=== PATIENT | male | born 1965 | race Caucasian/White ===

== ENCOUNTER 2017-04-08 10:15 | Inpatient (IN) | payer OTHER ==
[~2017-04-08] VITALS: Ht 175.3 cm; Wt 94.5 kg
[2017-04-08 11:27] LABS: BASOPHIL % 0.4 % (0-2); PLATELET COUNT 263 x10^3mcL (130-400)
[2017-04-08 11:33] LABS: RED CELL DISTRIBUTION WIDTH 17.6 % (11.5-14.5)
[2017-04-08 11:56] LABS: CALCIUM 7.9 mg/dL (8.5-10.1); CARBON DIOXIDE 23.3 mmol/L (21-32); CHLORIDE SERUM 98 mmol/L (98-107); GFR1 > 60 mL/min; GLUCOSE SERUM 167 mg/dL (74-106); POTASSIUM SERUM 4.8 mmol/L (3.5-5.1); SODIUM SERUM 132 mmol/L (136-145)
[2017-04-08] MEDS ORDERED: BUSPIRONE HCL5 MG PO (11:57)
[2017-04-08] MEDS ORDERED: ISOSORBIDE MONO30 MG PO (11:57)
[2017-04-08] MEDS ORDERED: CYMBALTA60 M1 PO (11:58)
[2017-04-08] MEDS ORDERED: LASIX40 MG PO (11:59)
[2017-04-08] MEDS ORDERED: CLOPIDOGREL75 M1 PO (12:00)
[2017-04-08] MEDS ORDERED: AMIODARONE HCL200 MG PO (12:00)
[2017-04-08] MEDS ORDERED: PERCOCET1 TA5 PO (12:01)
[2017-04-08] MEDS ORDERED: LISINOPRIL2.5 MG PO (12:01)
[2017-04-08] MEDS ORDERED: MAGNESIUM OXID400 MG PO (12:02)
[2017-04-08] MEDS ORDERED: CARVEDILOL12.5 M1 PO (12:03)
[2017-04-08] MEDS ORDERED: XANAX XR1 M1 PO (12:03)
[2017-04-08] MEDS ORDERED: KLOR-CON M2020 MEQ PO (12:04)
[2017-04-08] MEDS ORDERED: ASPIR 8181 MG PO (12:05)
[2017-04-08 12:06] LABS: ALKALINE PHOSPHATASE 85 U/L (46-116); ALT/SGPT 19 U/L (16-63); AST/SGOT 39 U/L (15-37); BILIRUBIN TOTAL 1.9 mg/dL (0.20-1.00); TOTAL PROTEIN, SERUM 6.6 g/dL (6.4-8.2)
[2017-04-08] MEDS ORDERED: ALDACTONE25 MG PO (12:06)
[2017-04-08 12:13] LABS: CK-MB 4.5 ng/mL (0-3.6)
[2017-04-08 13:39] LABS: MAGNESIUM 1.8 mg/dL (1.8-2.4); PHOSPHOROUS 3.6 mg/dL (2.5-4.9)
[2017-04-08 13:41] LABS: CHOLESTEROL/HDL RATIO 4.5
[2017-04-08 13:50] LABS: FREE T4 1.49 ng/dL (0.76-1.46); FREE THYROXINE INDEX 3.6 ug/dL (1.4-4.5); T4(THYROXINE) 9.4 ug/dL (4.7-13.3)
[2017-04-08 13:54] LABS: T3 TOTAL 0.88 ng/mL
[2017-04-08 14:31] VITALS: BP 106/62
[2017-04-08 15:03] LABS: microscopic required? NO
[2017-04-08 15:44] LABS: UA SPECIFIC GRAVITY 1.015 (1.005-1.035); urine erythrocyte NEGATIVE (NEGATIVE)
[2017-04-08 15:52] LABS: AMPHETAMINE QUAL UR NONE DETECTED (NEG <=1000)
[2017-04-08 17:32] VITALS: BP 92/49
[2017-04-08 18:35] VITALS: BP 92/49
[2017-04-08 18:58] VITALS: BP 105/71
[2017-04-08 21:16] VITALS: BP 93/56
[2017-04-09 06:37] VITALS: BP 106/71
[2017-04-09 07:45] VITALS: BP 97/65
[2017-04-09 07:58] LABS: BASOPHIL % 0.3 % (0-2); PLATELET COUNT 235 x10^3mcL (130-400)
[2017-04-09 08:02] LABS: RED CELL DISTRIBUTION WIDTH 17.8 % (11.5-14.5)
[2017-04-09 08:05] LABS: CALCIUM 7.8 mg/dL (8.5-10.1); CARBON DIOXIDE 26.8 mmol/L (21-32); CHLORIDE SERUM 99 mmol/L (98-107); CREATININE SERUM 1.1 mg/dL (0.7-1.3); GFR1 > 60 mL/min; GLUCOSE SERUM 138 mg/dL (74-106); POTASSIUM SERUM 3.9 mmol/L (3.5-5.1); SODIUM SERUM 136 mmol/L (136-145)
[2017-04-09 08:11] VITALS: Ht 175.3 cm; Wt 94.5 kg
[2017-04-09 09:30] VITALS: BP 97/65
[2017-04-09 17:56] VITALS: BP 113/78
[2017-04-09 22:15] VITALS: BP 116/84
[2017-04-09 23:37] VITALS: BP 116/81
[2017-04-10 06:05] LABS: BASOPHIL % 0.5 % (0-2); PLATELET COUNT 229 x10^3mcL (130-400)
[2017-04-10 06:20] VITALS: BP 104/63
[2017-04-10 06:44] LABS: CALCIUM 8.2 mg/dL (8.5-10.1); CARBON DIOXIDE 29.4 mmol/L (21-32); CHLORIDE SERUM 101 mmol/L (98-107); CREATININE SERUM 1.2 mg/dL (0.7-1.3); GFR1 > 60 mL/min; GLUCOSE SERUM 135 mg/dL (74-106); POTASSIUM SERUM 4.7 mmol/L (3.5-5.1); SODIUM SERUM 138 mmol/L (136-145)
[2017-04-10 07:15] LABS: RED CELL DISTRIBUTION WIDTH 17.6 % (11.5-14.5)
[2017-04-10 09:46] VITALS: BP 105/83
[2017-04-10] MEDS ORDERED: LAC PO (10:20)
[2017-04-10] MEDS ORDERED: CLEOCIN HCL150 MG PO (10:20)
[2017-04-10] MEDS ORDERED: LEVAQUIN750 MG PO (10:20)
[2017-04-10 13:02] VITALS: BP 105/83
[2017-04-10 14:06] VITALS: BP 109/76
== END 2017-04-10 16:19 | disposition home or self-care (01) | DRG 177 ==
LOC: ED 10:15 → EDBD 10:15 → DU 12:57
PROVIDERS: Emergency Medicine; Family Medicine; ADMIT Family Medicine
DX: J69.0 Pneumonitis due to inhalation of food and vomit (principal); I50.43 Acute on chronic combined systolic (congestive) and diastolic (congestive) heart failure; I42.9 Cardiomyopathy, unspecified; I69.351 Hemiplegia and hemiparesis following cerebral infarction affecting right dominant side; E87.1 Hypo-osmolality and hyponatremia; E44.0 Moderate protein-calorie malnutrition; I69.391 Dysphagia following cerebral infarction; R13.10 Dysphagia, unspecified; I11.0 Hypertensive heart disease with heart failure; K21.9 Gastro-esophageal reflux disease without esophagitis; I08.3 Combined rheumatic disorders of mitral, aortic and tricuspid valves; L29.8 Other pruritus; N28.1 Cyst of kidney, acquired; F41.1 Generalized anxiety disorder; D64.9 Anemia, unspecified; E78.5 Hyperlipidemia, unspecified; I25.2 Old myocardial infarction; Z95.1 Presence of aortocoronary bypass graft; Z79.82 Long term (current) use of aspirin; Z96.649 Presence of unspecified artificial hip joint
CPT/HCPCS: CLHCL; 80307; 83880; 84439; 94150; C1894; J1200; J1644; J1940; J1956; J2001; J2250; J2405; J3010; J3490; J7030; J7040; J7620; Q0092; Q0162; Q0163; Q0177; Q9967